=== PATIENT | female | born 1965 | race Caucasian/White ===

== ENCOUNTER → 2018-05-09 | Outpatient (CLI) | payer OTHER ==
--- NOTE | 2018-05-09 09:48 | DIAGNOSTIC IMAGING REPORT ---
Study: Upper GI CLINICAL HISTORY: HIATAL HERNIAdysphagia COMPARISON STUDY: None FLUOROSCOPY TIME: 2.6 minutes. FINDINGS: Patient initiated swallowing function well. Esophagus normal in course and caliber. There is a large hiatal hernia. Size configuration stomach otherwise unremarkable. There is a small diverticulum of the duodenal sweep. No evidence for gastric outlet obstruction. IMPRESSION: Large hiatal hernia. Otherwise negative study. The above report was generated using voice recognition software. It may contain grammatical, syntax or spelling errors. Electronically signed by: Harshad Padgett M.D. 05/09/2018 9:46 AM Dictated Date/Time: 05/09/2018 9:45 AM
== END | disposition home or self-care (01) ==
LOC: C.RAD 09:05
PROVIDERS: ATTEND Surgery
DX: K44.9 Diaphragmatic hernia without obstruction or gangrene (principal)